=== PATIENT | female | born 1950 | race Caucasian/White ===

== ENCOUNTER → 2017-09-05 | Outpatient (CLI) | payer MEDICARE, OTHER ==
[~2017-09-05] MED LIST: ACETAMINOPHEN650 M5 PO; ACYCLOVIR 400400 MG; ACYCLOVIR 400400 MG PO; AMLODIPINE BESY10 MG; ASA81BEC PO; ASPIRIN81 M2; BRILINTA90 MG PO; CALCIUM 500 +1 EAC5 PO; CARVEDILOL3.125 MG PO; COZAAR 50 MG TA50 M2 PO; CRESTOR20 MG PO; LEVOTHYROXINE0.05 MG; LEVOTHYROXINE0.05 MG PO; LIPITOR 20 MG T20 M1 PO; LISINOPRIL2.5 MG PO; LOPRESSOR25 PO; MULTIVITAMINS1 EAC7 PO; NITROGLYCERIN0.4 MG PO; NITROGLYCERIN0.4 MG SL; NORVASC10 MG PO; PRILOSEC20 MG PO; SYMBICORT160 MCG/4. INH; TOPROL XL50 MG PO; TRIAMTERENE-HC1 EAC1; ULTRAM 50MG TAB50 MG PO; ZETIA10 MG PO
--- NOTE | 2017-09-05 14:23 | EXE ---
[place] [address] STRESS ECHOCARDIOGRAM Name: JASMINE PUGA Room: [facility]#: [id number] Admission: 09/05/17 Attend Phys: Geraldo Rojas, Discharge: Date of : 54 Date of Service: 09/05/17 1423 Report #: [id number] THIS REPORT FOR: //name// APPROVED REPORT Exam: Stress Echocardiogram Indication: Chest pain Patient Location: Out-Patient Stress Nurse: Lourdes Anne RN Supervising Physician: Lam Valdovinos MD Status: routine Ht: 5 ft 1 in HR: 58 bpm BP: 176/81 mmHg Medical History Medical History: CAD Cardiac Risk Factors: Hyperlipidemia, FHX of CAD Procedure The patient underwent an Exercise Stress Test using the Stas Protocol. Blood pressure, heart rate, and EKG were monitored. An Echocardiogram was performed by lubrication technician in four stages in quad fashion. At peak stress, four selected images were obtained and placed side by side with resting images for comparison. Stress Test Details Stress Test: Exercise stress testing was performed using a Stas protocol. HR Resting HR: 58 bpm Max Heart Rate (APMHR): 155 bpm Max HR Achieved: 146 bpm Target HR (85% APMHR): 131 bpm % of APMHR: 94 Recovery HR: 81 bpm HR response to stress: Normal HR response to stress BP Resting BP: 176/81 mmHg Max BP: 186/69 mmHg Recovery BP: 140/82 mmHg ECG Resting ECG: RBBB Stress ECG: Sinus Tachycardia ST Change: Horizontal [place] [address] STRESS ECHOCARDIOGRAM Name: JASMINE PUGA Room: [facility] Neva#: [id number] Admission: 09/05/17 Attend Phys: Geraldo Rojas, Discharge: Date of : 54 Date of Service: 09/05/17 1423 Report #: [id number] Maximum ST Deviation: 1.5 mm Arrhythmia: VPC's Recovery ECG: Sinus Rhythm Recovery ST Change: Horizontal ST depression Recovery ST Deviation: 1 mm Clinical Reason for Termination: Dyspnea Exercise duration: 7 min 35 sec Highest Stage Achieved: Stage 2: 2.5 mph at 12% grade. Exercise capacity: 9.49 METs Pre-Stress Echo The resting Echocardiogram showed normal left ventricular contractility with an estimated Ejection Fraction of about 55-60%. Post-Stress Echo The stress Echocardiogram showed normal left ventricular contractility with an estimated Ejection Fraction of about 65-70%. Conclusion Clinical Response: Non-ischemic Exercise Capacity: Average Stress ECG Response: Ischemic Stress Echo Images: Non-ischemic low risk stress echo for future cardiac events Other Information Study Quality: Fair <Conclusion> low risk stress echo for future cardiac events <ELECTRONICALLY SIGNED> By: Lam Valdovinos MD, FAC 09/05/17 1423 1423 1423 Lam Valdovinos MD, [facility] /INF
== END ==
LOC: M.CRD 10:47
DX: I47.2 Ventricular tachycardia (principal); I25.10 Atherosclerotic heart disease of native coronary artery without angina pectoris

== ENCOUNTER 2020-05-16 15:18 | Observation (INO) | payer MEDICARE, OTHER ==
[~2020-05-16] VITALS: Ht 154.9 cm; Wt 71.2 kg
[~2020-05-16 15:18] MED LIST changes: -ACYCLOVIR 400400 MG; +ASPIRIN EC81 M1 PO; -ASPIRIN81 M2; -LEVOTHYROXINE0.05 MG; +PRILOSEC OTC20 MG PO; -PRILOSEC20 MG PO; +SYNTHROID50 MCG PO
[2020-05-16 15:23] VITALS: BP 100/69
[2020-05-16] MEDS ORDERED: CHLORTHALIDONE25 MG PO (15:30)
[2020-05-16] MEDS ORDERED: COZAAR 25 MG TA25 M1 PO (15:31)
[2020-05-16] MEDS ORDERED: SLOW FE142 MG PO (15:32)
[2020-05-16] MEDS ORDERED: SPIRIVA INH (15:32)
[2020-05-16] MEDS ORDERED: REPATHA SU140 MG/1 M SUBQ (15:33)
[2020-05-16 17:04] LABS: ABSOLUTE BASOPHILS 0.1 thou/uL (0.0-0.2); ABSOLUTE EOSINOPHILS 0.4 thou/uL (0.0-0.7); ABSOLUTE LYMPHOCYTES 1.9 thou/uL (0.8-5.3); ABSOLUTE MONOCYTES 0.6 thou/uL (0.0-1.2); ABSOLUTE NEUTROPHILS 2.7 thou/uL (1.6-8.1); BASOPHILS 1.2 %; HEMOGLOBIN 13.3 gm/dL (12.0-15.0); LYMPHOCYTES 33.6 %; MCH 32.7 pg (26.0-34.0); MCV 96.2 fL (80.0-100.0); MONOCYTES 10.3 %; NUCLEATED RBCS 0 /100WBC; PLATELET COUNT* 277 thou/uL (150-400); POLYS 47.9 %; RBC 4.06 mil/uL (4.20-5.00); RDW-CV 13.3 % (10.5-14.5); WBC 5.7 thou/uL (4.0-11.0)
[2020-05-16 17:14] LABS: CALCIUM 9.2 mg/dL (8.5-10.1); CREATININE 1.1 mg/dL (0.6-1.3); POTASSIUM 3.3 mmol/L (3.5-5.1)
[2020-05-16 17:17] LABS: INR 0.9; PROTIME 9.1 Seconds (9.20-11.50)
[2020-05-16 17:25] LABS: ALBUMIN 3.1 g/dL (3.4-5.0); TOTAL BILIRUBIN 0.2 mg/dL (<0.1-1.0); TOTAL PROTEIN 6.9 g/dL (6.4-8.2)
[2020-05-16 18:20] VITALS: BP 168/75
[2020-05-16 18:37] VITALS: BP 183/59
[2020-05-16] MEDS ORDERED: PROAIR HFA8.5 GM INH (18:44)
[2020-05-16 20:14] VITALS: BP 131/72
[2020-05-17] VITALS: BP 111/46
[2020-05-17 04:00] VITALS: BP 134/64
[2020-05-17 06:06] LABS: ABSOLUTE BASOPHILS 0.1 thou/uL (0.0-0.2); ABSOLUTE EOSINOPHILS 0.5 thou/uL (0.0-0.7); ABSOLUTE LYMPHOCYTES 3.5 thou/uL (0.8-5.3); ABSOLUTE MONOCYTES 0.6 thou/uL (0.0-1.2); ABSOLUTE NEUTROPHILS 1.9 thou/uL (1.6-8.1); BASOPHILS 0.8 %; EOSINOPHILS 7.3 %; HEMATOCRIT 36.6 % (37.0-47.0); HEMOGLOBIN 12.4 gm/dL (12.0-15.0); MCH 32.4 pg (26.0-34.0); MCHC 33.8 g/dL (28.0-37.0); MCV 95.9 fL (80.0-100.0); MONOCYTES 8.7 %; MPV 8.8 fl. (7.2-11.1); NUCLEATED RBCS 0 /100WBC; PLATELET COUNT* 249 thou/uL (150-400); POLYS 29.2 %; RBC 3.81 mil/uL (4.20-5.00); RDW-CV 13.8 % (10.5-14.5); WBC 6.5 thou/uL (4.0-11.0)
[2020-05-17 06:23] LABS: CALCIUM 9.4 mg/dL (8.5-10.1); POTASSIUM 4.2 mmol/L (3.5-5.1)
[2020-05-17 08:00] VITALS: BP 170/68
[2020-05-17 12:00] VITALS: BP 139/73
[2020-05-17 16:00] VITALS: BP 165/78
--- NOTE | 2020-05-17 18:09 | CARDNUC ---
[place] [address] CARDIAC NUCLEAR IMAGING REPORT Name: VIVIENJASMINE Mejias Room: [address] M.R.#: [id number] Admission: 05/16/20 Attend Phys: Spencer Paredes, Discharge: Date of : 54 Date of Service: 05/17/20 1809 Report #: [id number] THIS REPORT FOR: cc: Roe Demarco MD, Matthew W. MD Liston, Michael J. MD [facility] ~ APPROVED REPORT Imaging Protocol: Rest Tc-99m/Stress Tc-99m 1 day Study performed: 05/17/2020 15:09:07 Indication: Chest pressure/Discomfort, Palpitations, Ventricular Trigeminy. Patient Location: In-Patient Room #: 223 Stress Tech: Melly Harrison Stress Nurse: Caryl Hayes RN NM Tech:MADALYN Crockett Ht: 5 ft 0 in Wt: 157 lbs BSA: 1.68 m2 BMI: 30.65 Medical History Medical History: Chest pressure/discomfort, Heart palpitations/irregular HR, Ventricular Trigeminy, COLTON, Hypothyroidism, HTN, HLD, CAD s/p SD, CAD s/p stent. Medications: Hydralazine, Mag-Ox, K-Dur, Home meds include ASA 81 Mg, Chlorthalidone, Lorsartan, Metoprolol, NTG, Repatha. Allergies: Atenolol, Codeine, Lovastatin. Cardiac Risk Factors: Age, FHX of CAD, HTN, Hyperlipidemia, Palpitations, V-Trigeminy. Previous Cardiac Procedures: Myocardial infarction, PCI. Pretest Chest Pain Characteristics: No chest pain Exercise History: Indeterminate Physical Disabilities: Weakness. Meds Held (24 hrs): None Resting Data Rest SPECT myocardial perfusion imaging was performed in supine position 30 minutes following the intravenous injection of 10.5 mCi of Tc-99m Sestamibi. Time of rest injection: 1310 Date: 05/17/2020 The images were gated to evaluate regional wall motion and calculate left ventricular [place] [address] CARDIAC NUCLEAR IMAGING REPORT Name: JASMINE PUGA Room: [address] Neva#: [id number] Admission: 05/16/20 Attend Phys: Spencer Paredes, Discharge: Date of : 54 Date of Service: 05/17/20 1809 Report #: [id number] Administration Route: IV Administration Site: Left Arm Pharmacologic Stress Pharmacologic stress test was performed by injecting Regadenoson 0.4 mg IV push over 10-15 seconds immediately followed by the intravenous injection of 31.2 mCi of Tc-99m Sestamibi. Time of stress injection: 1500 Date: 05/17/2020 Administration Route: IV Administration Site: Left Arm Gated Stress SPECT was performed 40 minutes after stress injection. The images were gated to evaluate regional wall motion and calculate left ventricular ejection fraction. Prone imaging was performed. Stress Test Details Stress Test: Pharmacologic stress testing performed using 0.4 mg of regadenoson per 5 mL given IV over 10 seconds. Reason for pharmacologic stress test: Weakness.. HR Max Heart Rate (APMHR): 152 bpm Resting HR: 61 bpm Target HR (85% APMHR): 129 bpm Max HR Achieved: 104 bpm % of APMHR: 68 Recovery HR: 79 bpm BP Resting BP: 113/77 mmHg Max BP: 153/74 mmHg Recovery BP: 160/88 mmHg ECG Resting ECG: Sinus Rhythm, RBBB Stress ECG: Sinus Tachycardia, RBBB ST Change: None Arrhythmia: VPC's Recovery ECG: Sinus Rhythm, RBBB Recovery ST Change: None Recovery Arrhythmia: VPC Clinical Reason for Termination: Completed protocol Stress Symptoms: Cramping pain under left breast 09/15, SOA, Headache. Exercise duration: 00 min 00 sec Exercise capacity: 1.00 [place] [address] CARDIAC NUCLEAR IMAGING REPORT Name: JASMINE PUGA Room: [address] M.Jazmine#: [id number] Admission: 05/16/20 Attend Phys: Spencer Paredes, Discharge: Date of : 54 Date of Service: 05/17/20 1809 Report #: [id number] The patient tolerated walking Lexiscan protocol without significant cardiac symptoms. Nurse Comments A 70 year old female inpatient presented for a sitting Lexiscan r/t tachycardia, palpitations, Ventricular Trigeminy, chest pressure. Test well tolerated. Recovery unremarkable. Patient was stable and stated she felt good when transported via wheelchair to Nuclear Medicine for imaging. Stress ECG Conclusion The baseline twelve-lead EKG shows sinus rhythm with right bundle branch block. EKGs obtained during and post walking Lexiscan protocol show sinus rhythm and sinus tachycardia without significant ST segment changes. There were occasional unifocal premature ventricular contractions noted. Study Quality Study: Good Artifact: No artifact Study Data At rest, the left ventricular ejection fraction was 81%.. Post stress, the left ventricular ejection was 83%.. TID = 0.90. Perfusion Perfusion images obtained at rest and post walking Lexiscan stress showed uniform uptake of the radioisotope throughout the myocardium. There were no defects to suggest infarct or ischemia. Wall Motion Normal left ventricular wall motion. Nuclear Conclusion ECG Findings: negative for ischemia Clinical Findings: negative for ischemia Nuclear Findings: negative for ischemia Exercise Capacity: not assessed Left Ventricular Function: normal Risk Study: low Myocardial perfusion images show no defect to suggest infarct or ischemia. Left ventricular systolic function is normal on gated studies. This is a low risk study. <Conclusion> [place] [address] CARDIAC NUCLEAR IMAGING REPORT Name: JASMINE PUGA Room: [address] Estela Hooks#: [id number] Admission: 05/16/20 Attend Phys: Spencer Paredes, Discharge: Date of : 54 Date of Service: 05/17/20 1809 Report #: [id number] The baseline twelve-lead EKG shows sinus rhythm with right bundle branch block. EKGs obtained during and post walking Lexiscan protocol show sinus rhythm and sinus tachycardia without significant ST segment changes. There were occasional unifocal premature ventricular contractions noted. <ELECTRONICALLY SIGNED> By: James Cruz MD, FACC 05/17/201808 08 08 James Cruz MD, FACC /INF
--- NOTE | 2020-05-17 18:26 | EKG ---
[place] [address] ELECTROCARDIOGRAM REPORT Name: VIVIENLorenzaLAZARA Mejias Room: [address] M.R.#: [id number] Admission: 05/16/20 Attend Phys: Spencer Paredes, Discharge: Date of : 54 Date of Service: 05/16/20 1551 Report #: [id number] THIS REPORT FOR: //name// [facility] ED Test Date: 2020-05-16 Test Time: 15:51:40 Pat Name: JASMINE PUGA Department: Room: [facility] Gender: F Concrete Paver: : 1950 Requested By: Cecile Garza Order Number: [id number] MD: James Cruz Measurements Intervals [place] Rate: 82 P: 17 MA: 191 QRS: -59 QRSD: 149 T: 36 QT: 420 QTc: 491 Interpretive Statements Sinus rhythm Ventricular trigeminy RBBB and LAFB Compared to ECG 08/30/2013 07:34:41 Ventricular premature complex(es) now present Bifascicular block no longer present Myocardial infarct finding no longer present Electronically Signed On 05-17-2020 18:26:12 CDT by James Cruz [email or web address] <ELECTRONICALLY SIGNED> By: James Cruz MD, FACC 05/17/20 1826 1551 1551 James Cruz MD, FACC /EPI
[2020-05-17 18:57] VITALS: BP 165/78
== END 2020-05-17 19:21 | disposition home or self-care (01) ==
LOC: M.ERS 15:18 → M.TBA-ER 16:45 → M.2W 19:02
PROVIDERS: Personal Emergency Response Attendant; ADMIT Internal Medicine; ATTEND Internal Medicine
DX: R07.89 Other chest pain (principal); R00.2 Palpitations; I25.10 Atherosclerotic heart disease of native coronary artery without angina pectoris; I10 Essential (primary) hypertension; G47.33 Obstructive sleep apnea (adult) (pediatric); E03.9 Hypothyroidism, unspecified; E78.5 Hyperlipidemia, unspecified; J45.909 Unspecified asthma, uncomplicated; Z79.82 Long term (current) use of aspirin; Z79.899 Other long term (current) drug therapy; Z20.828 Contact with and (suspected) exposure to other viral communicable diseases

== ENCOUNTER 2020-08-08 14:37 | Emergency (ER) | payer MEDICARE, OTHER ==
[~2020-08-08] VITALS: Ht 154.9 cm; Wt 72.6 kg
[~2020-08-08 14:37] MED LIST changes: +CHLORTHALIDONE25 MG PO; +COZAAR 25 MG TA25 M1 PO; +PROAIR HFA8.5 GM INH; +REPATHA SU140 MG/1 M SUBQ; +SLOW FE142 MG PO; +SPIRIVA INH
[2020-08-08] MEDS ORDERED: FLOVENT DISKU100 MCG INH (16:28)
[2020-08-08] MEDS ORDERED: TESSALON PERLE100 M1 PO (16:28)
[2020-08-08] MEDS ORDERED: PREDNISONE50 MG PO (16:28)
[2020-08-08 16:42] VITALS: BP 113/68
--- NOTE | 2020-08-09 13:46 | EKG ---
[place] [address] ELECTROCARDIOGRAM REPORT Name: JASMINE PUGA [id number] Admission: 08/08/20 Attend Phys: Discharge: 08/08/20 Date of : 54 Date of Service: 08/08/20 1444 Report #: [id number] THIS REPORT FOR: //name// [facility] ED Test Date: 2020-08-08 Test Time: 14:44:51 Pat Name: JASMINE PUGA Department: Room: Gender: F Field Associate: CCD : 1950 Requested By: Caroline Montes Order Number: [id number] MD: Lam Valdovinos Measurements Intervals [place] Rate: 77 P: 30 ID: 180 QRS: -27 QRSD: 128 T: 70 QT: 413 QTc: 468 Interpretive Statements Sinus rhythm Right bundle branch block Compared to ECG 05/16/2020 15:51:40 Ventricular premature complex(es) no longer present Left anterior fascicular block no longer present Electronically Signed On 08-09-2020 13:46:23 [employer] by Lam Valdovinos [email or web address] <ELECTRONICALLY SIGNED> By: Lam Valdovinos MD, [facility] 08/09/20 1346 1444 1444 Lam Valdovinos MD, [facility] /EPI
== END 2020-08-08 16:42 | disposition home or self-care (01) ==
LOC: M.ERS 14:37
DX: J45.901 Unspecified asthma with (acute) exacerbation (principal); Z20.828 Contact with and (suspected) exposure to other viral communicable diseases; I10 Essential (primary) hypertension; E78.5 Hyperlipidemia, unspecified; G47.33 Obstructive sleep apnea (adult) (pediatric); I25.10 Atherosclerotic heart disease of native coronary artery without angina pectoris; E03.9 Hypothyroidism, unspecified; Z88.5 Allergy status to narcotic agent; Z88.8 Allergy status to other drugs, medicaments and biological substances